=== PATIENT | female | born 1980 | race Caucasian/White ===

== ENCOUNTER 2016-03-27 03:15 | Emergency (ER) | payer BC ==
[2016-03-27] MEDS ORDERED: ONDANSETRON HCL/PF 2 MG/ML VIAL IV ONE (03:31)
[2016-03-27] MEDS ORDERED: NORMAL SALINE 1,000 ML IV ONE (03:32)
[2016-03-27] MEDS ORDERED: ONDANSETRON HCL/PF 2 MG/ML VIAL ONE (03:32)
--- NOTE | 2016-03-27 03:38 | ERNOTE ---
Medical Problem HPI - General Chief Complaint: Nausea/Vomiting Time Seen by Provider: 03/27/16 03:25 Source: patient Exam Limitations: no limitations - Immun/Allergies/Home Medications Immunizations: IMMUNIZATION HX Immunizations Up to Date Yes History of Influenza Vaccine Yes Hx Pneumococcal Vaccination No Allergies/Adverse Reactions: Allergies azithromycin [From Zithromax] Allergy (Verified 02/28/16 21:56) Penicillins Allergy (Verified 02/28/16 21:56) Home Medications: HOME MEDICATIONS Atenolol [Tenormin] 25 mg PO DAILY 12/25/15 [Last Taken Unknown] Hydrochlorothiazide [Hydrodiuril] 25 mg PO DAILY 12/25/15 [Last Taken Unknown] Levothyroxine Sodium [Levo-T] 25 mcg PO DAILY 12/25/15 [Last Taken Unknown] Montelukast Sodium [Singulair] 10 mg PO DAILY 12/25/15 [Last Taken Unknown] Olopatadine HCl [Patanol] 1 - 2 drop EACHEYE BID 12/25/15 [Last Taken Unknown] Topiramate [Topamax] 50 mg PO DAILY 12/25/15 [Last Taken Unknown] Ondansetron HCl [Zofran] 1 - 2 mg PO Q8H PRN #10 tab 03/27/16 [Last Taken Unknown] Promethazine HCl [Phenergan] 25 mg PO QID PRN #10 tab 03/27/16 [Last Taken Unknown] - History of Present History Narrative: Pt had ham rolls from [employer] yesterday afternoon. She states she very soon after she began to have nausea and abdominal cramping. by late afternoon she began to vomit and early this morning she continued to vomit and has been unable to keep anything down for a few hours. She is traveling today and wants to feel better for traveling. I warned her that diarrhea usually follows these episodes and it would be more difficult to stop the diarrhea while traveling Timing: getting worse Severity: moderate, severe Modifying Factors - (Worsens): Present: eating Review of Systems - Review of Systems Constitutional: Absent: recent illness, fever EYE: Present: no symptoms reported ENT: Present: no symptoms reported, sore throat - mild Respiratory: Present: no symptoms reported Cardiology: Present: no symptoms reported Gastrointestinal/Abdominal: Present: See HPI, nausea, vomiting, abdominal pain Genitourinary: Present: no symptoms reported Musculoskeletal: Present: no symptoms reported Skin: Present: no symptoms reported Neurological: Present: no symptoms reported Endocrine: Present: no symptoms reported Hematologic/Lymphatic: Present: no symptoms reported Psych: Present: no symptoms reported - Patient's Past Medical History Patient History - Medical: GERD, Headache, Hypothyroidism, Migraines Patient History - Cancer: No Hx of Cancer Patient History - Surgical Procedures: Cholecystectomy, Other LMP (females 10-50): 3 months - Social History Living Situations: home Smoking Status: Never smoker Have you smoked in the past 12 months: No Do you dip or chew tobacco: No Patient requests Smoking Cessation Consult: No Initiate information on Smoking Cessation: No Alcohol Use: none Drug Use: none Physical Exam - Physical Exam General Appearance: Present: wd/wn, alert, mild distress Eye Exam: Normal inspection: bilateral, PERRL: bilateral, EOMI: bilateral Ears, Nose, Throat: Present: normal ENT inspection Neck: Present: normal inspection, nontender Respiratory: Present: no respiratory distress, no accessory muscle use Gastrointestinal/Abdominal: Present: tenderness - epigastric mostly, very mild b /l lower quads, abnormal bowel sounds - hypoactive. Absent: guarding, rebound Extremity Exam: Present: normal inspection, non-tender, no edema, normal range of motion Neurological Exam: Present: alert, oriented, normal mood/affect, no motor/ sensory deficits Skin Exam: Present: normal color, warm/dry Lymphatic Exam: Present: no adenopathy ED Progress - Vital Signs Vital Signs: Vital Signs 03/27/16 03:17 Temperature 37.0 C Pulse Rate 123 H Respiratory 16 Rate Blood Pressure 124/92 O2 Sat by Pulse 96 Oximetry - Progress/Reassessment Chief Complaint: Nausea/Vomiting Progress:: Improved Departure - Departure Clinical Impression: Gastroenteritis Disposition: Home self-care Condition: Good Instructions: Nausea, Adult Additional Instructions: Clear liquids today, slowly advance diet starting tomorrow Referrals: Axel Jackson DO [Primary Care Provider] - Prescriptions: Ondansetron HCl [Zofran] 1 - 2 mg PO Q8H PRN #10 tab PRN Reason: Nausea Promethazine HCl [Phenergan] 25 mg PO QID PRN #10 tab PRN Reason: nausea/vomiting
[2016-03-27 05:10] VITALS: BP 123/89
== END 2016-03-27 04:50 | disposition home or self-care (01) ==
LOC: ER 03:15
DX: K52.9 Noninfective gastroenteritis and colitis, unspecified (principal); E03.9 Hypothyroidism, unspecified